=== PATIENT | female | born 1970 ===

== ENCOUNTER 2021-09-17 11:13 | Emergency (ER) | payer OTHER ==
[~2021-09-17] VITALS: Ht 160 cm; Wt 116.4 kg
[2021-09-17 11:42] VITALS: TEMP 98.2
[2021-09-17] MEDS ORDERED: ZITHROMAX Z PA250 MG PO (13:36)
[2021-09-17 13:46] VITALS: BP 140/77; PULSE 64
== END 2021-09-17 13:47 | disposition home or self-care (01) ==
LOC: COL.ER 11:13
DX: J20.9 Acute bronchitis, unspecified (principal); J45.909 Unspecified asthma, uncomplicated; Z20.822 Contact with and (suspected) exposure to COVID-19